=== PATIENT | female | born 1985 | race Caucasian/White ===

== ENCOUNTER 2017-05-28 17:35 | Emergency (ER) | payer SELFPAY ==
[2017-05-28 17:58] VITALS: RESP 16
--- NOTE | 2017-05-28 19:36 | EDPHY ---
HPI/HX/ROS/PE/MDM Narrative: CHIEF COMPLAINT: Left ankle pain secondary to fall HISTORY OF PRESENT ILLNESS: The patient is a 32 y/o female complaining of left ankle pain secondary to falling on ice and twisting her ankle tonight. She has had difficulty bearing weight on the ankle since the fall. Denies numbness or tingling to extremities. Patient was otherwise well. REVIEW OF SYSTEMS: Aside from elements discussed in the HPI, a comprehensive 10-point review of systems was reviewed and is negative. PAST MEDICAL HISTORY: ADD SOCIAL HISTORY: Visiting [place] from [place], single, self-employed VITAL SIGNS: Reviewed by me GENERAL: Well-developed, well-nourished, resting comfortably in no respiratory distress. Reporting ankle pain. EXTREMITIES: Left ankle: Tenderness, swelling and ecchymosis over lateral malleoli, tenderness and swelling inferior to lateral malleoli, tenderness posteriorly. Range of motion is limited secondary to pain and swelling. Mild medial malleoli discomfort but no swelling. Achy discomfort along anterior garvey. No lacerations or abrasions. Portions of this note were transcribed by a medical records custodian. I personally performed a history, physical exam, medical decision making, and confirmed accuracy of information the transcribed note. ED Course: The patient is a 32 y/o female presenting with a left ankle injury after falling on ice tonight. On exam of her left ankle, there is swelling and ecchymosis over her lateral malleoli, swelling inferior to her lateral malleoli , and tenderness posteriorly. Ankle x-ray ordered. 1904: Spoke with Dr. Churchill, radiologist, regarding patient's ankle x-ray. There is an irregularity on the calcaneous, further imaging is required. 2030: Patient's foot x-ray reveals no acute osseous injury. She will be placed in a boot, given crutches, and referred to an orthopedic surgeon. 2040: Reassessed patient and discussed imaging findings. I have prescribed her [place] for severe pain, her first dose will be given in the ED. Return precautions provided; patient is comfortable with this plan. MDM: Differential diagnosis for the patient's injury was considered including but not limited to contusion, abrasion, laceration, fracture, open fracture, or dislocation. - Data Points Imaging: Discussed imaging studies w/ oil well drilling manager Radiologist, I viewed and interpreted images myself Medications Given: Discontinued Medications Hydrocodone Bitart/Acetaminophen ([place] 5/325) 1 tab PO EDNOW ONE Stop: 05/28/17 20:47 Last Admin: 05/28/17 20:51 Dose: 1 tab Hydrocodone Bitart/Acetaminophen ([place] 5/325mg Prepack#6) 1 btl TAKEHOME EDNOW ONE Stop: 05/28/17 20:48 Last Admin: 05/28/17 20:52 Dose: 1 btl General Time Seen by Provider: 05/28/17 19:17 Initial Vital Signs: Initial Vital Signs Temperature (C) 37 C 05/28/17 17:54 Heart Rate 73 05/28/17 17:54 Respiratory Rate 16 05/28/17 17:54 Blood Pressure 115/74 05/28/17 17:54 O2 Sat (%) 98 05/28/17 17:54 O2 Delivery Mode Room Air Allergies/Adverse Reactions: cefaclor [From Ceclor] Allergy (Verified 05/28/17 17:54) medroxyprogesterone [From Depo-Provera] Allergy (Verified 05/28/17 17:54) Home Medications: Medication Instructions Recorded Adderall 10 MG (*) 05/28/17 Departure - Departure Disposition: Home, Routine, Self-Care Clinical Impression: Ankle sprain Sprain of left foot Qualifiers: Encounter type: initial encounter Qualified Code(s): S93.602A - Unspecified sprain of left foot, initial encounter Condition: Good Instructions: Hydrocodone/Acetaminophen (By mouth), Crutch Instructions (ED), Foot Sprain (ED) Additional Instructions: Mainstay of therapy is rest, ice, immobilization, elevation, and nonsteroidal anti-inflammatories for pain and to decrease swelling. Apply ice for 20-30 minutes every 2-3 hours for the next 48 hours. Take [place] as prescribed for severe pain I recommend Ibuprofen (Motrin,Advil) or Naproxen Sodium (Aleve) for pain and anti-inflammatory effects. You may take either one, but do not take both. Your dose is: Ibuprofen 600mg every 6-8 hours with food. OR Naproxen Sodium (Aleve) 220mg every 12 hours. Follow up with an orthopedic surgeon within one week if pain persists. Keep the boot on until follow up visit with an orthopedic surgeon. You can shower and sleep without the bood. Return to the emergency department for worsening pain, swelling, numbness, weakness or other concerns. Wear splint for comfort, weight bear as tolerated. Referrals: Nishant Thompson MD [Medical Doctor] - As per Instructions Report Scribed for: Paola Mullins Report Scribed by: Mi Morgan Date of Report: 05/28/17 Time of Report: 19:35
[2017-05-28] MEDS ORDERED: HYDROCODONE/APAP 5/325 TAB PO ONE (20:46)
[2017-05-28] MEDS ORDERED: HYDROCOD/APAP 5/325 PREPACK#6 BTL TAKEHOME ONE (20:47)
[2017-05-28 21:17] VITALS: BP 134/70; PULSE 78; TEMP 97.9; O2SAT 97
== END 2017-05-28 21:17 | disposition home or self-care (01) ==
DX: S93.402A Sprain of unspecified ligament of left ankle, initial encounter (principal); S93.602A Unspecified sprain of left foot, initial encounter; W00.9XXA Unspecified fall due to ice and snow, initial encounter
CPT/HCPCS: L4386